=== PATIENT | male | born 1990 | race Caucasian/White ===

== ENCOUNTER 2017-01-18 11:32 | Emergency (ER) | payer OTHER ==
[~2017-01-18] VITALS: Ht 172.7 cm; Wt 70.0 kg
[~2017-01-18 11:32] MED LIST: AMBIEN10 MG PO; CLONAZEPAM0.5 MG PO; EFFEXOR XR75 MG PO; NAPROSYN500 MG PO; ULTRAM50 MG PO
[2017-01-18] MEDS ORDERED: CLONAZEPAM1 MG PO (12:06)
[2017-01-18] MEDS ORDERED: LUNESTA3 MG PO (12:07)
[2017-01-18] MEDS ORDERED: FLUOXETINE10 M2 PO (12:08)
[2017-01-18] MEDS ORDERED: CEPHALEXIN500 MG PO (14:05)
[2017-01-18] MEDS ORDERED: NAPROSYN500 MG PO (14:05)
[2017-01-18 14:15] VITALS: BP 113/64
== END 2017-01-18 14:25 | disposition home or self-care (01) | DRG 605 ==
LOC: ED 11:32
DX: S40.012A Contusion of left shoulder, initial encounter (principal); M54.2 Cervicalgia; S50.812A Abrasion of left forearm, initial encounter; S50.811A Abrasion of right forearm, initial encounter; S71.142A Puncture wound with foreign body, left thigh, initial encounter; W11.XXXA Fall on and from ladder, initial encounter; Y93.H9 Activity, other involving exterior property and land maintenance, building and construction; Y92.007 Garden or yard of unspecified non-institutional (private) residence as the place of occurrence of the external cause

== ENCOUNTER 2017-02-06 22:41 | Emergency (ER) | payer OTHER ==
[~2017-02-06] VITALS: Ht 172.7 cm; Wt 76.8 kg
[~2017-02-06 22:41] MED LIST changes: +CEPHALEXIN500 MG PO; +CLONAZEPAM1 MG PO; +FLUOXETINE10 M2 PO; +LUNESTA3 MG PO
[2017-02-06] MEDS ORDERED: EFFEXOR XR75 MG PO (23:24)
[2017-02-06] MEDS ORDERED: KLONOPIN1 MG PO (23:24)
[2017-02-06] MEDS ORDERED: DEPAKOTE ER500 MG PO (23:25)
[2017-02-07 00:02] LABS: HEMOGLOBIN 13.8 g/dl (14.0-18.0); IMMATURE GRANULOCYTES 0.3 % (0.0-1.0); MEAN CELL VOLUME 88.2 fL CALC (80.0-100.0); MEAN CORPUSCULAR HGB CONC 36.3 g/L CALC (32.0-36.0); NEUT# 5.52 thou/uL (1.82-7.42); RED BLOOD COUNT 4.31 mill/uL (4.70-6.10); RED CELL DISTRI WIDTH 11.7 % (11.5-15.5)
[2017-02-07 00:15] LABS: ALBUMIN 4.8 g/dL (3.2-5.0); ALKALINE PHOSPHATASE 64 u/l (38-126); ANION GAP 23 (6-22 (CALC)); BILIRUBIN, TOTAL 0.4 mg/dL (0.0-1.4); BUN 11 mg/dL (9-20); BUN/CREATININE RATIO 11 (12-20 (CALC)); CALCIUM 10.5 mg/dL (8.4-10.2); CARBON DIOXIDE 23 mmol/l (22-30); CHLORIDE 99 mmol/l (95-108); ETHYL ALCOHOL 27 mg/dl (0-30); GFR > 60 ML/MIN (>=60 (CALC)); GFR FOR AFR.AMER. > 60 ML/MIN (>=60 (CALC)); GLUCOSE 92 mg/dL (75-110); POTASSIUM 3.8 mmol/l (3.5-5.1); SGOT/AST 28 u/l (17-59); SGPT/ALT 41 u/l (21-72); SODIUM 141 mmol/l (137-146); TOTAL PROTEIN 7.8 g/dL (6.3-8.2)
[2017-02-07 00:22] LABS: URINE BILIRUBIN - DIPSTICK NEGATIVE (NEGATIVE); URINE BLOOD DIPSTICK NEGATIVE (NEGATIVE); URINE CLARITY CLEAR; URINE COLOR YELLOW; URINE GLUCOSE - DIPSTICK NEGATIVE (NEGATIVE); URINE KETONE NEGATIVE (NEGATIVE); URINE LEUK ESTERASE NEGATIVE (NEGATIVE); URINE NITRITE - DIPSTICK NEGATIVE (Negative); URINE PROTEIN - DIPSTICK NEGATIVE (NEG-TRACE); URINE UROBILINOGEN - DIPSTICK 0.2 E.U./dL (0.2)
[2017-02-07 00:24] LABS: BARBITURATES NEGATIVE (NEGATIVE); COCAINE POSITIVE (NEGATIVE); METHADONE NEGATIVE (NEGATIVE); TETRAHYDROCANNABIONOL NEGATIVE (NEGATIVE); TRICYLIC ANTIDEPRESSANTS NEGATIVE (NEGATIVE)
[2017-02-07 00:25] LABS: OXCYCODONE POSITIVE (NEGATIVE)
[2017-02-07 01:30] VITALS: BP 148/62
== END 2017-02-07 01:45 | disposition left against medical advice (07) | DRG 880 ==
LOC: ED 22:41
PROVIDERS: Emergency Medicine
DX: F41.9 Anxiety disorder, unspecified (principal); G40.909 Epilepsy, unspecified, not intractable, without status epilepticus; F32.9 Major depressive disorder, single episode, unspecified; R06.4 Hyperventilation; R07.9 Chest pain, unspecified; Z91.19 Patient's noncompliance with other medical treatment and regimen
CPT/HCPCS: J2060